=== PATIENT | male | born 1940 | race Caucasian/White ===

== ENCOUNTER 2019-06-13 08:44 | Emergency (ER) | payer MEDICARE, BC ==
--- NOTE | 2019-06-13 10:00 | ED ---
GI/ HPI - HPI Summary HPI Summary: Patient is a 79-year-old male who presents emergency department for dysuria and hematuria. Patient states he noticed dysuria on Saturday and today developed hematuria. Patient denies abdominal pain, flank pain, fever, vomiting, chest pain, shortness of breath. Patient is not anticoagulated. Past medical history of BPH, hyperlipidemia and hypertension. Symptoms are mild to moderate in severity. No current modifying factors. - History of Current Complaint Chief Complaint: EDUrogenitalProblems Time Seen by Provider: 06/13/19 09:42 Stated Complaint: URINATING BLOOD PER PT Hx Obtained From: Patient Pain Intensity: 0 - Allergy/Home Medications Allergies/Adverse Reactions: Allergies Allergy/AdvReac Type Severity Reaction Status Date / Time No Known Allergies Allergy Verified 06/13/19 08:48 PMH/Surg Hx/FS Hx/Imm Hx Previously Healthy: Yes Endocrine/Hematology History: Reports: Hx Diabetes - TYPE II ON ORAL MEDICATION FOR Cardiovascular History: Reports: Hx Hypertension - ON MEDICATION FOR Sensory History: Reports: Hx Contacts or Glasses - READING GLASSES Denies: Hx Hearing Aid Opthamlomology History: Reports: Hx Contacts or Glasses - READING GLASSES Infectious Disease History: No Infectious Disease History: Denies: Traveled Outside the [place] in Last 30 Days - Family History Known Family History: Positive: Non-Contributory - Social History Occupation: Retired Lives: With Family Alcohol Use: None Substance Use Type: Reports: None Smoking Status (MU): Former Smoker Amount Used/How Often: 2 PPD X 3 YEARS Have You Smoked in the Last Year: No Review of Systems Constitutional: Negative Negative: Fever, Chills Cardiovascular: Negative Respiratory: Negative Gastrointestinal: Negative Negative: Abdominal Pain, Vomiting, Nausea Positive: burning, hematuria. Negative: flank pain Neurological: Negative All Other Systems Reviewed And Are Negative: Yes Physical Exam Triage Information Reviewed: Yes Vital Signs On Initial Exam: Initial Vitals Temp Pulse Resp BP Pulse Ox 97.9 F 61 16 176/111 99 06/13/19 08:46 06/13/19 08:46 06/13/19 08:46 06/13/19 08:46 06/13/19 08:46 Vital Signs Reviewed: Yes Appearance: Positive: Well-Appearing - Pt. sitting up in bed in NAD. Pleasant. present. Skin: Positive: Warm, Dry Head/Face: Positive: Normal Head/Face Inspection Eyes: Positive: Normal, EOMI Neck: Positive: Supple Respiratory/Lung Sounds: Positive: Clear to Auscultation, Breath Sounds Present Cardiovascular: Positive: Normal, RRR Abdomen Description: Positive: Nontender, Soft. Negative: CVA Tenderness (R), CVA Tenderness (L) Neurological: Positive: Normal, CN Intact II-III Psychiatric: Positive: Affect/Mood Appropriate Diagnostics - Vital Signs Vital Signs Temp Pulse Resp BP Pulse Ox 06/13/19 08:46 97.9 F 61 16 176/111 99 - Laboratory Result Diagrams: 06/13/19 10:08 06/13/19 10:08 Lab Statement: Any lab studies that have been ordered have been reviewed, and results considered in the medical decision making process. GIGU Course/Dx - Course Course Of Treatment: Pt. presenting with hematuria. No abd. or flank pain. Afebrile and well appearing. Labs shows stable H and H, mild chronic renal insufficiency, minimally elevated CRP. U/A negative for bacteria or nitrates. Will treat for hemorrhagic cystitis with bactrim. Strongly advised to see PCP on Saturday. To increase fluids. To return to ER for abd./flank pain, syncope, fever, vomiting or if concerned. - Diagnoses Differential Diagnoses - Male: Pyelonephritis, Ureteral Calculi, Urinary Tract Infection Provider Diagnoses: Hemorrhagic cystitis Discharge - Sign-Out/Discharge Documenting (check all that apply): Patient Departure Patient Received Moderate/Deep Sedation with Procedure: No - Discharge Plan Condition: Good Disposition: HOME Prescriptions: Sulfamethox/Trimethoprim DS* [Bactrim DS 800/160 TAB*] 1 tab PO BID #20 tab Patient Education Materials: Urinary Tract Infection in Men (ED), Hematuria (ED ) Referrals: Chrissy Lewis MD [Primary Care Provider] - Additional Instructions: Schedule a follow up appointment with PCP on Saturday Take antibiotic as directed Increase fluids Return to ER for fever, abdominal pain, back pain, vomiting, or if concerned - Billing Disposition and Condition Condition: GOOD Disposition: Home
[2019-06-13 10:15] LABS: Urine Red Blood Cell 3+(>10/hpf) (Absent)
[2019-06-13 10:15] LABS: ABS Basophils 0.1 10^3/ul (0-0.2); ABS Eosinophils 0.5 10^3/ul (0-0.6); ABS Monocytes 0.6 10^3/ul (0-0.8); ABS Neutrophils 6.4 10^3/ul (1.5-7.7); Eosinophil % 5.6 %; Hematocrit 44 % (42-52); Hemoglobin 14.4 g/dL (14.0-18.0); Lymphocyte % 11.6 %; Mean Corpuscular HGB Conc 33 g/dL (31-36); Mean Corpuscular Hemoglobin 28 pg (27-31); Mean Corpuscular Volume 84 fL (80-94); Nucleated Red Blood Cells % 0.1; Platelet Count 174 10^3/uL (150-450); Red Blood Count 5.16 10^6 /uL (4.18-5.48); Red Cell Distribution Width 14 % (10-15); White Blood Count 8.4 10^3/uL (3.5-10.8)
[2019-06-13 10:16] LABS: Urine Appearance Cloudy; Urine Color Red; Urine Specific Gravity 1.019 (1.010-1.030)
[2019-06-13 10:24] LABS: Activated Partial Thrombo Time 34.2 seconds (26.0-38.0); INR 0.98 (0.82-1.09)
[2019-06-13 10:28] LABS: Albumin 4.4 g/dL (3.2-5.2); Calcium 9.6 mg/dL (8.6-10.3); Potassium 4.4 mmol/L (3.5-5.0); Total Bilirubin 0.7 mg/dL (0.2-1.0)
[2019-06-13 10:34] LABS: Albumin/Globulin Ratio 1.3 (1-3); BUN/Creatinine Ratio 20.6 (8-20); C Reactive Protein 13.44 mg/L (<8.01); EGFR African American 61.3 (>60); EGFR Non-African American 50.7 (>60); Globulin 3.3 g/dL (2-4); Total Protein 7.7 g/dL (6.4-8.9)
[2019-06-13] MEDS ORDERED: Sulfamethox/Trimethoprim DS 800/160* TAB PO ONE (11:14)
[2019-06-13 11:27] VITALS: BP 163/90
== END 2019-06-13 11:37 | disposition home or self-care (01) ==
LOC: ED 08:44
DX: N30.91 Cystitis, unspecified with hematuria (principal); E11.9 Type 2 diabetes mellitus without complications; I10 Essential (primary) hypertension; Z79.84 Long term (current) use of oral hypoglycemic drugs; Z79.899 Other long term (current) drug therapy; Z87.891 Personal history of nicotine dependence
CPT/HCPCS: 36415; 80053; 81003; 85025; 85610; 85730; 86140; 99283; A9270-GY

== ENCOUNTER 2019-07-21 12:02 | Emergency (ER) | payer MEDICARE, BC ==
[2019-07-21] MEDS ORDERED: Lidocaine 2% EPI 1:200000 MPF* 10 ML VIAL INJ ONE (13:16)
[2019-07-21] MEDS ORDERED: Tetan/Diph/Pertus SYR(Tdap)* 0.5 ML SYR(BOOSTRIX) use SYR IM ONE (13:16)
[2019-07-21] MEDS ORDERED: Lidocaine 2% w/ EPI 1:200,000* 20 ML SDV VIAL ONE (13:51)
--- NOTE | 2019-07-21 13:52 | ED ---
Laceration/Wound HPI - HPI Summary HPI Summary: 79-year-old male presents with laceration to right knee. He states he cut it on a chainsaw. He has full range of motion of his knee. Is able to ambulate. No numbness or tingling. There is no active bleeding. not on any blood thinners. Is not diabetic. Unsure when last tetanus was. He clean area out with peroxide. - History of Current Complaint Stated Complaint: CUT ON LEFT LEG PER PT Time Seen by Provider: 07/21/19 13:10 Pain Intensity: 2 - Allergy/Home Medications Allergies/Adverse Reactions: Allergies Allergy/AdvReac Type Severity Reaction Status Date / Time No Known Allergies Allergy Verified 06/13/19 08:48 PMH/Surg Hx/FS Hx/Imm Hx Endocrine/Hematology History: Reports: Hx Diabetes - TYPE II ON ORAL MEDICATION FOR Cardiovascular History: Reports: Hx Hypertension - ON MEDICATION FOR Sensory History: Reports: Hx Contacts or Glasses - READING GLASSES Denies: Hx Hearing Aid Opthamlomology History: Reports: Hx Contacts or Glasses - READING GLASSES Infectious Disease History: No Infectious Disease History: Denies: Traveled Outside the in Last 30 Days - Family History Known Family History: Positive: Non-Contributory - Social History Alcohol Use: None Substance Use Type: Reports: None Smoking Status (MU): Former Smoker Amount Used/How Often: 2 PPD X 3 YEARS Have You Smoked in the Last Year: No Review of Systems Negative: Fever Negative: Chest Pain Negative: Shortness Of Breath Positive: Myalgia - right knee pain All Other Systems Reviewed And Are Negative: Yes Physical Exam Triage Information Reviewed: Yes Vital Signs On Initial Exam: Initial Vitals Temp Pulse Resp BP Pulse Ox 97.6 F 65 18 138/86 97 07/21/19 12:03 07/21/19 12:03 07/21/19 12:03 07/21/19 12:03 07/21/19 12:03 Vital Signs Reviewed: Yes Appearance: Positive: Well-Appearing Skin: Positive: Warm, Dry, Other - multiple lacerations to right knee: irregular 4 laceration parralel to each other measuring 4cm by 1cm, 2cm by 1/2cm , 1cm by 1/2cm, 3cm by 1/2cm Head/Face: Positive: Normal Head/Face Inspection Eyes: Positive: Normal, Conjunctiva Clear ENT: Positive: Pharynx normal Respiratory/Lung Sounds: Positive: Clear to Auscultation, Breath Sounds Present Cardiovascular: Positive: Normal, RRR Musculoskeletal: Positive: Strength/ROM Intact - right knee, Other - good pulses Neurological: Positive: Normal Psychiatric: Positive: Normal Procedures - Laceration/Wound Repair 1 Location: Other - right knee Description: Irregular Anesthesia: Local, 1.0%, Epi Length, Depth and Shape: irregular 4 laceration parralel to each other measuring 4cm by 1cm, 2cm by 1/2cm, 1cm by 1/2cm, 3cm by 1/2cm Irrigated w/ Saline (ccs): 2,000 Laceration/Wound Explored: contaminated, foreign body removed Closure: Single Layer Suture Type: Prolene Number of Sutures: 13 Layer Closure?: No Sterile Dressing Applied?: Yes - xeroform, telfa, coband Diagnostics - Vital Signs Vital Signs Temp Pulse Resp BP Pulse Ox 07/21/19 12:03 97.6 F 65 18 138/86 97 - Laboratory Lab Statement: Any lab studies that have been ordered have been reviewed, and results considered in the medical decision making process. - Radiology knee Radiology Interpretation Completed By: Radiologist Summary of Radiographic Findings: IMPRESSION: SOFT TISSUE INJURY OVERLYING THE REGION OF THE PATELLAR TENDON. THERE ARE PUNCTATE DENSITIES OVERLYING THE SOFT TISSUES CONSISTENT WITH FOREIGN BODIES IN OR ON THE SOFT TISSUES. Laceration Repair Course/Dx - Course Course Of Treatment: 79-year-old male presents with laceration to right knee. He states he cut it on a chainsaw. He has full range of motion of his knee. Is able to ambulate. No numbness or tingling. There is no active bleeding. not on any blood thinners. Is not diabetic. Unsure when last tetanus was. Clean area out with peroxide. On exam has multiple lacerations to the right knee closed with 13 sutures. area was irritated extensively and foreign body were removed. Full range of motion. Does not appear to be any tendon involvement. X-ray shows foreign body. gave tetanus. Will place on Keflex with being contaminanted. told to wash area with soap and water and follow up with primary or ortho for wound check. warned if develop any rash to return. Patient understands and agrees with plan. - Differential Dx Differental Diagnoses: Abrasion, Avulsion, Laceration - Clinical Impression Provider Diagnoses: Laceration of right knee Discharge ED - Sign-Out/Discharge Documenting (check all that apply): Patient Departure Patient Received Moderate/Deep Sedation with Procedure: No - Discharge Plan Condition: Good Disposition: HOME Prescriptions: Cephalexin CAP* [Keflex CAP*] 500 mg PO BID #9 cap Patient Education Materials: Care For Your Stitches (ED) Referrals: Sudarshan Lucio MD [Medical Doctor] - Nathen Christine MD [Primary Care Provider] - Additional Instructions: Take Tylenol for pain every 6 hours as needed wash area with soap and water take keflex twice a day for 5 days change dressing every day follow up with ortho or primary in 3 days for wound check Return to ED or primary in 8-10 days to have sutures removed Return to ED if develop signs of infection such as fever, spreading redness, or pus. - Billing Disposition and Condition Condition: GOOD Disposition: Home - Attestation Statements Provider Attestation: I was available for consult. This patient was seen by the SHO. The patient was not presented to, seen by, or examined by me. Cruz Dueñas MD
[2019-07-21] MEDS ORDERED: Cephalexin CAP* 500 MG PO ONE (15:04)
[2019-07-21 15:30] VITALS: BP 138/90
== END 2019-07-21 15:29 | disposition home or self-care (01) ==
LOC: ED 12:02
DX: S81.021A Laceration with foreign body, right knee, initial encounter (principal); W29.3XXA Contact with powered garden and outdoor hand tools and machinery, initial encounter; Y92.9 Unspecified place or not applicable; Z23 Encounter for immunization; E11.9 Type 2 diabetes mellitus without complications; Z79.84 Long term (current) use of oral hypoglycemic drugs; I10 Essential (primary) hypertension; Z87.891 Personal history of nicotine dependence
CPT/HCPCS: 12032; 90471; 90715; 99282; A9270-GY